=== PATIENT | male | born 1940 | race Caucasian/White ===

== ENCOUNTER → 2019-03-03 | Outpatient (CLI) | payer MEDICARE, BC ==
--- NOTE | 2019-03-04 08:37 | Diagnostic Imaging Report ---
MRI of the left shoulder without contrast. History: Shoulder pain. Injury. Fall. Decreased range of motion. Comparison: None Technique: Coronal PD FS, sagital PD FS, and axial PD and PD FS. 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 This is best seen on coronal image 15 through 19. There is minimal retraction of the torn fibers and mild supraspinatus muscle atrophy. Additionally, there is subscapularis tendinosis. The teres minor tendon is intact. Osseous acromion complex: Type II acromion with mild lateral downsloping. Moderate degenerative arthrosis at the acromioclavicular joint with undersurface spurring and narrowing of the supraspinatus tendon outlet. Mild subacromial/subdeltoid bursitis best seen on sagittal image 12 and 13. Glenohumeral joint: Degeneration and fraying of the labrum. The articular cartilage surfaces are intact. The humeral head is well-seated in the glenoid fossa. Small effusion and mild synovitis in the rotator interval and subcoracoid space. Biceps tendon: Intra-articular biceps tendinosis with fraying at the biceps anchor. Other findings: Negative for muscle denervation or osseous fracture. 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 Moderate degenerative arthrosis at the acromioclavicular joint with undersurface spurring and narrowing of the supraspinatus tendon outlet. Mild subacromial/subdeltoid bursitis. Intra-articular biceps tendinosis with fraying at the biceps anchor. Signed by: Dr. Zach Hooks M.D. on 03/04/2019 8:34 AM
== END ==
LOC: MRI 14:50
PROVIDERS: ATTEND Specialist
DX: S46.092A Other injury of muscle(s) and tendon(s) of the rotator cuff of left shoulder, initial encounter (principal)

== ENCOUNTER 2021-01-12 11:48 | Emergency (ER) | payer MEDICARE, BC ==
[~2021-01-12] VITALS: Ht 165.1 cm; Wt 61.2 kg
[2021-01-12] MEDS ORDERED: Vancomycin IV 1 GM in SODIUM CHLORIDE 0.9% 250ML 250 ML IV STA (11:58)
[2021-01-12] MEDS ORDERED: PIPERACILLIN/TAZOBACTAM 3.375 GM in SODIUM CHLORIDE 0.9% 50ML 50 ML IV STA (11:58)
[2021-01-12] MEDS ORDERED: SODIUM CHLORIDE 0.9% 1000ML 1,000 ML IV STA (11:58)
[2021-01-12 12:15] LABS: BASOPHILS % 0.3 % (0.0-1.0); EOSINOPHILS # (AUTO) 1.7 (0.0-0.4); EOSINOPHILS % 17.5 % (0.0-6.0); HEMATOCRIT 45.3 % (38.2-49.6); HEMOGLOBIN 14.9 g/dL (14.0-18.0); LYMPHOCYTES # (AUTO) 2.7 (1.0-3.2); LYMPHOCYTES % 27.5 % (18.0-39.1); MEAN CORPUSCULAR HEMOGLOBIN 31.1 pg (28-32); MEAN CORPUSCULAR HGB CONC 32.9 g/dL (31-35); MEAN CORPUSCULAR VOLUME 94.6 fL (81-99); MONOCYTES # (AUTO) 0.6 (0.2-0.8); MONOCYTES % 6.1 % (4.4-11.3); NEUTROPHILS # (AUTO) 4.6 (2.1-6.9); NEUTROPHILS % 48.3 % (38.7-80.0); PLATELET COUNT 340 x10e3/uL (140-360); RED BLOOD COUNT 4.79 x10e6/uL (4.3-5.7); RED CELL DISTRIBUTION WIDTH 13.7 % (11.7-14.4)
[2021-01-12] MEDS ORDERED: KETOROLAC TROMETHAMINE 30 MG/ML VIAL IV ONE (12:18)
[2021-01-12 12:42] LABS: ALBUMIN/GLOBULIN RATIO 1.1 (0.8-2.0); ANION GAP 11.4 mmol/L (8-16); CALCIUM 9.5 mg/dL (8.4-10.2); CREATININE, SERUM 1.02 mg/dL (0.72-1.25); POTASSIUM 4.4 mmol/L (3.5-5.1)
[2021-01-12] MEDS ORDERED: CEPHALEXIN500 MG PO (14:08)
[2021-01-12] MEDS ORDERED: IBUPROFEN400 MG PO (14:08)
[2021-01-12] MEDS ORDERED: BACTRIM DS TAB1 EACH PO (14:08)
[2021-01-12] MEDS ORDERED: TETANUS/DIPHTHERIA TOX ADULT 0.5 ML SYR IM ONE (14:15)
== END 2021-01-12 14:30 | disposition home or self-care (01) ==
LOC: ER 11:59
DX: L03.113 Cellulitis of right upper limb (principal); W22.8XXA Striking against or struck by other objects, initial encounter; Y93.H2 Activity, gardening and landscaping; Y92.007 Garden or yard of unspecified non-institutional (private) residence as the place of occurrence of the external cause; F03.90 Unspecified dementia, unspecified severity, without behavioral disturbance, psychotic disturbance, mood disturbance, and anxiety
CPT/HCPCS: 36415; 71046; 80053; 83605; 85025; 87040; 90471; 90714; 93005; 93971; 99284; J1885; J2543; J3370; J7030; J7050

== ENCOUNTER 2021-02-26 08:32 | Emergency (ER) | payer MEDICARE, BC, OTHER ==
[~2021-02-26] VITALS: Ht 165.1 cm; Wt 61.2 kg
[~2021-02-26 08:32] MED LIST: BACTRIM DS TAB1 EACH PO; CEPHALEXIN500 MG PO; IBUPROFEN400 MG PO
[2021-02-26] MEDS ORDERED: TETANUS/DIPHTHERIA TOX ADULT 0.5 ML SYR IM ONE (08:45)
[2021-02-26] MEDS ORDERED: LIDOCAINE HCL 2% LOCAL 20 ML VIAL ONE (10:38)
[2021-02-26] MEDS ORDERED: BACITRACIN ZINC 0.9GM TP ONE (11:10)
[2021-02-26 11:19] VITALS: BP 123/67
== END 2021-02-26 11:22 | disposition home or self-care (01) ==
LOC: ER 08:50
DX: S51.811A Laceration without foreign body of right forearm, initial encounter (principal); M25.511 Pain in right shoulder; W01.198A Fall on same level from slipping, tripping and stumbling with subsequent striking against other object, initial encounter; Y93.01 Activity, walking, marching and hiking; Y92.003 Bedroom of unspecified non-institutional (private) residence as the place of occurrence of the external cause; F03.90 Unspecified dementia, unspecified severity, without behavioral disturbance, psychotic disturbance, mood disturbance, and anxiety
CPT/HCPCS: 13121; 13122 ×2; 73030; 73060; 73080; 73090; 73110; 99283; J2001

== ENCOUNTER 2021-12-21 12:36 | Emergency (ER) | payer MEDICARE, BC ==
[~2021-12-21] VITALS: Ht 165.1 cm; Wt 61.2 kg
[2021-12-21] MEDS ORDERED: PREDNISONE50 MG PO (13:28)
[2021-12-21] MEDS ORDERED: CELEBREX100 MG PO (13:28)
== END 2021-12-21 13:35 | disposition home or self-care (01) ==
LOC: ER 12:57
DX: M19.041 Primary osteoarthritis, right hand (principal); M25.441 Effusion, right hand; Y93.H2 Activity, gardening and landscaping; F03.90 Unspecified dementia, unspecified severity, without behavioral disturbance, psychotic disturbance, mood disturbance, and anxiety
CPT/HCPCS: 99282